=== PATIENT | female | born 1965 | race Caucasian/White ===

== ENCOUNTER → 2024-07-23 | Outpatient (REF) | payer OTHER ==
[~2024-07-23] MED LIST: IOPAMIDOL 370 MG/ML 100 ML INFUS..BTL INJ ONE; METOPROLOL TARTRATE 25 MG TAB ONE; METOPROLOL TARTRATE INJ 1 MG/ML VIAL ONE; NITROGLYCERIN 0.4 MG SUBL ONE; SODIUM CHLORIDE 0.9% 100 ML ONE
[2024-07-23 08:43] LABS: CREATININE, SERUM 0.83 mg/dL (0.57-1.11)
== END ==
LOC: CT 07:48
PROVIDERS: ATTEND Internal Medicine Interventional Cardiology
DX: I25.10 Atherosclerotic heart disease of native coronary artery without angina pectoris (principal); R94.39 Abnormal result of other cardiovascular function study
CPT/HCPCS: 36415; 75574; 82565; 84520; J7050; Q9967